=== PATIENT | male | born 1960 | race Caucasian/White ===

== ENCOUNTER 2018-09-11 13:06 | Day surgery (SDC) | payer MEDICAID ==
[~2018-09-11] VITALS: Ht 182.9 cm; Wt 81.5 kg
[~2018-09-11 13:06] MED LIST: HYDR-3237 PO; None per pt
[2018-09-11] MEDS ORDERED: LACTATED RINGERS 1,000 ML IV SCH ×2 (13:22→19:30)
[2018-09-11] MEDS ORDERED: BUPIVACAINE/PF 0.25% ONE (14:44)
[2018-09-11] MEDS ORDERED: FENTANYL PF 250 MCG/5ML ONE (16:05)
[2018-09-11] MEDS ORDERED: MIDAZOLAM 1 MG/ML, 2ML ONE (16:05)
[2018-09-11] MEDS ORDERED: PROPOFOL 10 MG/ML, 20ML ONE (16:06)
[2018-09-11] MEDS ORDERED: LIDOCAINE-MPF 2% ,5ML ONE (16:06)
[2018-09-11] MEDS ORDERED: CEFAZOLIN 1,000 MG ONE (16:12)
[2018-09-11] MEDS ORDERED: DEXAMETHASONE 4 MG/ML, 1ML ONE (16:33)
[2018-09-11] MEDS ORDERED: PHENYLEPHRINE 10 MG/ML ONE (16:33)
[2018-09-11] MEDS ORDERED: ONDANSETRON 2MG/ML, 2ML ONE (16:33)
[2018-09-11] MEDS ORDERED: HALOPERIDOL 5 MG/ML IV PRN (17:00)
[2018-09-11] MEDS ORDERED: hydrALAzine 20 MG/ML, 1ML IV PRN (17:00)
[2018-09-11] MEDS ORDERED: PROMETHAZINE 25 MG/ML, 1ML IV PRN (17:00)
[2018-09-11] MEDS ORDERED: HYDROmorphone 2 MG/ML, 1ML IVPush PRN (17:00)
[2018-09-11] MEDS ORDERED: OXYcodone 5 MG/5 ML ORAL.SOL UDC PO PRN (17:00)
[2018-09-11] MEDS ORDERED: FENTANYL PF 100 MCG/2ML IV PRN (17:00)
[2018-09-11] MEDS ORDERED: MEPERIDINE/PF 25MG/0.5ML IVPush PRN (17:00)
[2018-09-11] MEDS ORDERED: ACETAMINOPHEN 325 MG TABLET PO PRN (17:00)
[2018-09-11] MEDS ORDERED: KETOROLAC 30 MG/1 ML ONE (17:09)
[2018-09-11] MEDS ORDERED: ACETAMINOPHEN 650 MG/20.3 ML UDC ONE (17:49)
[2018-09-11] MEDS ORDERED: OXYcodone 5 MG/5 ML ORAL.SOL UDC ONE (17:50)
[2018-09-11] MEDS ORDERED: OXYcodone/APAP 5/325MG TABLET PO PRN (19:30)
[2018-09-11] MEDS ORDERED: morphine SULFATE 10 MG/ML, 1ML IV PRN (19:30)
[2018-09-11] MEDS ORDERED: ONDANSETRON 2MG/ML, 2ML IV PRN (19:30)
== END 2018-09-11 19:05 | disposition home or self-care (01) ==
LOC: OUT 13:06 → 4NOR 18:13 → OUT 19:05
PROVIDERS: ATTEND Urology
DX: N43.3 Hydrocele, unspecified (principal); Z72.89 Other problems related to lifestyle
CPT/HCPCS: 55040; J0690; J1100; J1885; J2250; J2370; J2405; J2704; J3010; J3490; J7120; G0378